=== PATIENT | male | born 1945 ===

== ENCOUNTER 2017-12-20 18:23 | Emergency (ER) | payer MEDICARE ==
[2017-12-20] MEDS ORDERED: BACTRIM DS PO ONE (19:32)
--- NOTE | 2017-12-20 19:54 | Emergency Department Report ---
HPI - General Chief Complaint: Extremity Injury, Upper Time Seen by Provider: 12/20/17 19:22 - HPI HPI: 71-year-old male presents to the emergency department with complaint of some swelling and redness to the right elbow that he first noticed earlier today. He denies any pain to the area or any restriction to range of motion. The patient is from [place] and is flying home on Monday from [place]. In the meantime he has been traveling around to some of the [facility]. He says that they did spend some time hiking or in [place] but he is not aware of any insect bites, scratches or any type of injury to the area. He has a past medical history of atrial fibrillation on Xarelto, low testosterone. He has not taken anything for her symptoms prior to presentation. ED Past Medical Hx - Past Medical History Hx Hypertension: Yes Additional medical history: hypothyrodism, AFib - Surgical History Additional Surgical History: pituatary tumor - Social History Smoking Status: Never Smoker Substance Use Type: None - Medications Home Medications: Home Medications Medication Instructions Recorded Confirmed Last Taken Type Ibuprofen 800 mg PO Q8H PRN #20 tablet 12/20/17 Unknown Rx Sulfamethoxazole/Trimethoprim 1 each PO BID #14 tablet 12/20/17 Unknown Rx [Bactrim DS TAB] ED Review of Systems ROS: Stated complaint: SWOLLEN/RED ELBOW Other details as noted in HPI Comment: All other systems reviewed and negative Constitutional: denies: chills, fever Eyes: denies: eye pain, eye discharge, vision change ENT: denies: ear pain, throat pain Respiratory: denies: cough, shortness of breath, wheezing Cardiovascular: denies: chest pain, palpitations Gastrointestinal: denies: abdominal pain, nausea, diarrhea Genitourinary: denies: urgency, dysuria Musculoskeletal: joint swelling. denies: back pain Skin: rash, change in color Neurological: denies: headache, weakness, paresthesias Physical Exam - Physical Exam Vital Signs: Vital Signs 12/20/17 12/20/17 18:27 19:34 Temperature 98.8 F 97.6 F Pulse Rate 72 62 Respiratory 18 16 Rate Blood Pressure 160/96 Blood Pressure 157/90 [Left] O2 Sat by Pulse 97 99 Oximetry Physical Exam: GENERAL: The patient is well-developed well-nourished. HENT: Normocephalic. Atraumatic. Patient has moist mucous membranes. EYES: Extraocular motions are intact. NECK: Supple. Trachea is midline. CHEST/LUNGS: Clear to auscultation. There is no respiratory distress noted. HEART/CARDIOVASCULAR: Regular. There is no tachycardia. There is no murmur. ABDOMEN: Abdomen is soft, nontender. Patient has normal bowel sounds. There is no abdominal distention. SKIN: There is some swelling seen to the posterior right elbow around the olecranon. This is surrounded by some mild erythema that goes from the proximal posterior forearm to the distal posterior humerus. There is no bleeding, weeping, drainage. NEURO: The patient is awake, alert, and oriented. The patient is cooperative. The patient has no focal neurologic deficits. The patient has normal speech. MUSCULOSKELETAL: There is no tenderness or deformity. There is no limitation range of motion. There is no evidence of acute injury. Radial pulse +2 over 4 and Refill less than 2 seconds to the affected right upper extremity. ED Course Vital Signs 12/20/17 12/20/17 18:27 19:34 Temperature 98.8 F 97.6 F Pulse Rate 72 62 Respiratory 18 16 Rate Blood Pressure 160/96 Blood Pressure 157/90 [Left] O2 Sat by Pulse 97 99 Oximetry ED Medical Decision Making - Lab Data Result diagrams: 12/20/17 20:02 12/20/17 20:20 - Radiology Data Radiology results: image reviewed interpreted by me: X-ray of the right elbow shows some posterior soft tissue swelling but otherwise no fracture, dislocation, foreign body or any acute process. - Medical Decision Making Patient presents with some acute swelling to the right posterior elbow. It has a presentation of olecranon bursitis but there is some surrounding erythema with concern for some cellulitis. X-ray does not show any fracture, dislocation or foreign body or signs of osteomyelitis. Labs are unremarkable including no leukocytosis, normal uric acid level. Patient vital signs stable including being afebrile. There is no extraction to range of motion status not appear to be a intra-articular joint effusion. Patient is safe for discharge home. He'll be placed on antibiotics and anti-inflammatories and encouraged to see his primary care physician or an orthopedist when he returns to [place] this weekend. In the meantime, he will be seen sooner if he develops any fever, worsening of the symptoms and we discussed monitoring for infection including worsening cellulitic changes or lymphangitis changes. He understands and agrees to the plan. - Differential Diagnosis olecranon bursitis, cellulitis, gout Critical Care Time: No Critical care attestation.: If time is entered above; I have spent that time in minutes in the direct care of this critically ill patient, excluding procedure time. ED Disposition Clinical Impression: Olecranon bursitis of right elbow, Cellulitis of right elbow Disposition: TO HOME OR SELFCARE Is pt being admited?: No Condition: Stable Instructions: Cellulitis (ED), Elbow Bursitis (ED) Additional Instructions: Please follow-up with your primary care physician as soon as you return back to [place]. Make sure you are seen sooner if there is any development of fever, worsening of the redness especially if it is spreading up your arm, or with any acute distress. Take the antibiotics as prescribed. I have prescribed for you anti-inflammatories as well. Prescriptions: Ibuprofen 800 mg PO Q8H PRN #20 tablet PRN Reason: Inflammation Sulfamethoxazole/Trimethoprim [Bactrim DS TAB] 1 each PO BID #14 tablet Referrals: PRIMARY CARE, [Primary Care Provider] - [facility] Time of Disposition: 21:10
--- NOTE | 2017-12-20 20:03 | XRay Report ---
FINAL REPORT PROCEDURE: XR ELBOW 3+V RT TECHNIQUE: Right elbow, three views HISTORY: redness, infection, swelling COMPARISON: No prior studies are available for comparison. FINDINGS: There is posterior soft tissue swelling. No underlying cortical erosion is seen. No fracture or dislocation. No joint effusion. IMPRESSION: Posterior soft tissue swelling
[2017-12-20 20:26] VITALS: BP 148/96
[2017-12-20 20:28] LABS: Basophils # (Auto) 0.1 K/mm3 (0.0-0.1); Eosinophils # (Auto) 0.1 K/mm3 (0.0-0.4); Eosinophils % (Auto) 1.4 % (0.0-4.3); Hematocrit 39.3 % (35.5-45.6); Hemoglobin 13.2 gm/dl (11.8-15.2); Lymphocytes # (Auto) 0.9 K/mm3 (1.2-5.4); Lymphocytes % (Auto) 11.9 % (13.4-35.0); Mean Corpuscular HGB Conc 34 % (32-34); Mean Corpuscular Hemoglobin 33 pg (28-32); Mean Corpuscular Volume 97 fl (84-94); Monocytes # (Auto) 0.5 K/mm3 (0.0-0.8); Monocytes % (Auto) 5.9 % (0.0-7.3); Platelet Count 176 K/mm3 (140-440); Red Blood Count 4.04 M/mm3 (3.65-5.03); Red Cell Distribution Width 14.3 % (13.2-15.2)
[2017-12-20 20:59] LABS: BUN/Creatinine Ratio 20; Blood Urea Nitrogen 18 mg/dL (9-20); Calcium 8.7 mg/dL (8.4-10.2); Hemolysis Index 3; Uric Acid 4.8 mg/dL (3.5-7.6)
== END 2017-12-20 21:30 | disposition home or self-care (01) ==
LOC: ED 18:23
DX: M70.21 Olecranon bursitis, right elbow (principal); L03.113 Cellulitis of right upper limb; I10 Essential (primary) hypertension; E03.9 Hypothyroidism, unspecified; I48.91 Unspecified atrial fibrillation; Z88.6 Allergy status to analgesic agent; Z88.5 Allergy status to narcotic agent
CPT/HCPCS: 36415; 80048; 84550; 85025